=== PATIENT | male | born 1940 | race Caucasian/White ===

== ENCOUNTER 2017-09-01 09:47 | Observation (INO) | payer OTHER ==
[~2017-09-01] VITALS: Ht 170.2 cm; Wt 72.8 kg
[2017-09-01] VITALS (8 sets, daily range): BP systolic 131–206; BP diastolic 69–98; PULSE 63–98; RESP 18–20; TEMP 97.1–98.4; O2SAT 96–98
[~2017-09-01 09:47] MED LIST: ASPI81TA21 PO; CLOP75 PO; LEVO.075 PO; METO50TA PO; PANT20 PO; VITATAB25 PO
[2017-09-01] MEDS ORDERED: SODIUM CHLORIDE 0.9% FLUSH 10 ML FLUSH IVF PRN (10:00)
[2017-09-01] MEDS ORDERED: HEPARIN SODIUM - IV 10,000 UNITS/10 ML VIAL IV PUSH ONE (10:00)
[2017-09-01] MEDS ORDERED: LISI10TA3 PO (10:38)
[2017-09-01] MEDS ORDERED: PROT40TA PO (10:38)
[2017-09-01] MEDS ORDERED: D31000CA3 PO (10:38)
[2017-09-01] MEDS ORDERED: VITA250T3 PO (10:38)
[2017-09-01] MEDS ORDERED: LEVO50TA4 PO (10:38)
[2017-09-01] MEDS ORDERED: ASPI81TA16 PO (10:38)
[2017-09-01] MEDS ORDERED: METO1TAB42 PO (10:38)
[2017-09-01] MEDS ORDERED: PLAV75TA29 PO (10:38)
[2017-09-01 10:40] LABS: AUTOMATED NEUTROPHIL # 5.1 TH/MM3 (1.8-7.7); BASOPHIL # 0.1 TH/MM3 (0-0.2); BASOPHIL % 1.4 % (0.0-2.0); EOSINOPHIL # 0.3 TH/MM3 (0-0.4); EOSINOPHIL % 4.8 % (0.0-4.0); HEMATOCRIT 42.8 % (39.0-51.0); HEMO FLAGS DIFF FINAL; LYMPH % 16.9 % (9.0-44.0); LYMPHOCYTE # 1.2 TH/MM3 (1.0-4.8); MEAN CORPUSCULAR HEMOGLOBIN 28.5 PG (27.0-34.0); MEAN CORPUSCULAR HGB CONC 33.5 % (32.0-36.0); MONO % 7.2 % (0.0-8.0); NEUT % 69.7 % (16.0-70.0); PLATELET COUNT 198 TH/MM3 (150-450); RED BLOOD COUNT 5.04 MIL/MM3 (4.50-5.90); RED CELL DISTRIBUTION WIDTH 15.5 % (11.6-17.2); WHITE BLOOD COUNT 7.3 TH/MM3 (4.0-11.0)
[2017-09-01 10:51] LABS: APTT (PATIENT) 27.6 SEC (24.3-30.1); PROTHROMBIN TIME - PATIENT 10.5 SEC (9.8-11.6)
--- NOTE | 2017-09-01 10:54 | PD ---
HPI . Chest pain Chief Complaint: Chest Pain Time Seen by Provider: 10:45 Travel History International Travel<30 days: No Contact w/Intl Traveler<30days: No Traveled to known affect area: No History of Present Illness HPI This patient presents to us at the request of his jack spooler tender for admission for cardiac catheterization. This patient reports chest pain intermittently for the last couple weeks. He has chest pain with exertion. Pain is relieved by rest. Pain usually last about 10 minutes. He estimates about 10 episodes in the last 2 weeks. He denies any associated nausea or diaphoresis. He states that his chest pain is a 7/10 when he has pain but that he is not currently having any pain. He states that he had a stress test done by his jack spooler tender about 3 months ago and that it was abnormal. He states that his jack spooler tender wanted him to have a catheterization at that time but he was leaving to go to [place] for the summer. He reports that he has had chest pain with exertion intermittently since that time and that it has become acutely worse over the last couple weeks. The patient does report dyspnea on exertion but states that the dyspnea on exertion is unrelated to the chest pain. 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) Cardiac Catheterization: Yes (february 2010) Cardiovascular Problems: Yes High Cholesterol: Yes Chemotherapy: Yes Chest Pain: Yes Congestive Heart Failure: No COPD: No Cerebrovascular Accident: Yes (TIA ) Coronary Artery Disease: Yes Diabetes: No Diminished Hearing: No Endocrine: Yes Gastrointestinal Disorders: Yes GERD: No Glaucoma: No Genitourinary: Yes Headaches: No Hepatitis: No Hiatal Hernia: No Heparin Induced Thrombocytopen: No Hypertension: Yes Immune Disorder: No Implanted Vascular Access Dvce: No Kidney Stones: No Musculoskeletal: Yes Neurologic: Yes Psychiatric: No Reproductive: No Respiratory: No Immunizations Current: No Migraines: No Myocardial Infarction: Yes (SC) Radiation Therapy: Yes (& Chemo See Cancer note) Renal Failure: No Seizures: No Sickle Cell Disease: No Sleep Apnea: No Thyroid Disease: Yes (HYPO) Ulcer: No PNEUMOCCOCAL Vaccine (Year): 2 Past Surgical History Abdominal Surgery: Yes (hernia repair) AICD: No Appendectomy: Yes (1973) Arteriovenous Shunt: No Body Medical Devices: CAD STENT Cardiac Surgery: Yes (CARDIAC STENT PLACEMENT, CABG 2009) Cholecystectomy: Yes (11/14/10) Coronary Artery Bypass Graft: Yes (02/2010 - [facility] bypass) Coronary Stent: Yes Ear Surgery: No Endocrine Surgery: No Eye Surgery: No Genitourinary Surgery: Yes (PROSTATECTOMY 1999) Gynecologic Surgery: No Insulin Pump: No Joint Replacement: No Neurologic Surgery: No Oral Surgery: No Pacemaker: No Thoracic Surgery: No Other Surgery: Yes Social History Alcohol Use: No Tobacco Use: No (quit in 1969) Substance Use: No Allergies-Medications (Allergen,Severity, Reaction): Coded Allergies: codeine (Unverified Allergy, Severe, ANXIOUS, 09/01/17) Reported Meds & Prescriptions Reported Meds & Active Scripts Active Reported Levothyroxine (Levothyroxine Sodium) 50 Mcg Tab 50 Mcg PO DAILY Protonix (Pantoprazole Sodium) 40 Mg Tab 40 Mg PO DAILY Plavix (Clopidogrel Bisulfate) 75 Mg Tab 75 Mg PO DAILY Vitamin C (Ascorbic Acid) 250 Mg Tab 500 Mg PO DAILY Lisinopril 10 Mg Tab 30 Mg PO DAILY Aspirin Adult Low Strength (Aspirin) 81 Mg Tabdr 81 Mg PO DAILY Vitamin D-3 (Cholecalciferol) 1,000 Unit Cap 1,000 Units PO DAILY Metoprolol Succinate ER 24 HR (Metoprolol Succinate) 25 Mg Tab 25 Mg PO DAILY Review of Systems Except as stated in HPI: all other systems reviewed are Neg HENT: No: Lightheadedness Cardiovascular: Positive: Chest Pain or Discomfort Respiratory: Positive: Shortness of Breath Gastrointestinal: No: Nausea, Vomiting Physical Exam Narrative GENERAL: Pleasant older gentleman who is in no acute distress. SKIN: warm/dry. Good color. HEAD: Normocephalic. Atraumatic. EYES: Pupils equal and round. No scleral icterus. No injection or drainage. ENT: No nasal bleeding or discharge. Mucous membranes pink and moist. NECK: Trachea midline. Full range of motion without pain.. CARDIOVASCULAR: Regular rate and rhythm. Heart sounds are normal. Well-healed vertical surgical scar over the sternum. RESPIRATORY: No accessory muscle use. Clear to auscultation. Breath sounds equal bilaterally. GASTROINTESTINAL: Abdomen soft. Nontender. Bowel sounds present. Nondistended. MUSCULOSKELETAL: No obvious deformities. NEUROLOGICAL: Awake and alert. No obvious cranial nerve deficits. Motor grossly within normal limits. Normal speech. PSYCHIATRIC: Appropriate mood and affect; insight and judgment normal. Data Data Last Documented VS Vital Signs Date Time Temp Pulse Resp B/P (MAP) Pulse Ox O2 Delivery O2 Flow Rate FiO2 09/01/17 10:51 76 155/73 (100) 09/01/17 10:28 18 96 Room Air 09/01/17 09:50 97.4 Orders Orders Electrocardiogram (09/01/17 09:58) Basic Metabolic Panel (Bmp) (09/01/17 09:58) Ckmb (Isoenzyme) Profile (09/01/17 09:58) Complete Blood Count With Diff (09/01/17 09:58) Magnesium (Mg) (09/01/17 09:58) Prothrombin Time / Inr (Pt) (09/01/17 09:58) Act Partial Throm Time (Ptt) (09/01/17 09:58) Troponin I (09/01/17 09:58) Chest, Single Ap (09/01/17 09:58) Ecg Monitoring (09/01/17 09:58) Iv Access Insert/Monitor (09/01/17 09:58) Oximetry (09/01/17 09:58) Sodium Chloride 0.9% Flush (Ns Flush) (09/01/17 10:00) Heparin Inj (Heparin Inj) (09/01/17 10:00) Heparin Inj (Heparin Inj) (09/01/17 16:00) Heparin Inj (Heparin Inj) (09/01/17 16:00) Heparin-D5w 25,000 U/250 Ml (Heparin-D5w (09/01/17 11:00) CKMB (09/01/17 10:15) CKMB% (09/01/17 10:15) Aspirin Ec (Ecotrin Ec) (09/02/17 09:00) Clopidogrel (Plavix) (09/02/17 09:00) Levothyroxine (Synthroid) (09/02/17 09:00) Lisinopril (Prinivil) (09/02/17 09:00) Metoprolol Succinate Er (Toprol Xl) (09/02/17 09:00) Pantoprazole (Protonix) (09/02/17 09:00) (Nf) Ascorbic Acid (Vitamin C) (09/02/17 09:00) (Nf) Cholecalciferol (Vitamin D-3) (09/02/17 09:00) Admit Order (Ed Use Only) (09/01/17 ) Labs Laboratory Tests Test 09/01/17 10:15 White Blood Count 7.3 TH/MM3 Red Blood Count 5.04 MIL/MM3 Hemoglobin 14.3 GM/DL Hematocrit 42.8 % Mean Corpuscular Volume 85.0 FL Mean Corpuscular Hemoglobin 28.5 PG Mean Corpuscular Hemoglobin Concent 33.5 % Red Cell Distribution Width 15.5 % Platelet Count 198 TH/MM3 Mean Platelet Volume 8.9 FL Neutrophils (%) (Auto) 69.7 % Lymphocytes (%) (Auto) 16.9 % Monocytes (%) (Auto) 7.2 % Eosinophils (%) (Auto) 4.8 % Basophils (%) (Auto) 1.4 % Neutrophils # (Auto) 5.1 TH/MM3 Lymphocytes # (Auto) 1.2 TH/MM3 Monocytes # (Auto) 0.5 TH/MM3 Eosinophils # (Auto) 0.3 TH/MM3 Basophils # (Auto) 0.1 TH/MM3 CBC Comment DIFF FINAL Differential Comment Prothrombin Time 10.5 SEC Prothromb Time International Ratio 1.0 RATIO Activated Partial Thromboplast Time 27.6 SEC Blood Urea Nitrogen 10 MG/DL Creatinine 1.02 MG/DL Random Glucose 120 MG/DL Calcium Level 9.2 MG/DL Magnesium Level 2.2 MG/DL Sodium Level 139 MEQ/L Potassium Level 4.0 MEQ/L Chloride Level 103 MEQ/L Carbon Dioxide Level 28.3 MEQ/L Anion Gap 8 MEQ/L Estimat Glomerular Filtration Rate 71 ML/MIN Total Creatine Kinase 123 U/L Creatine Kinase MB 4.1 NG/ML Troponin I 0.35 NG/ML Exceptions Acute Myocardial Infarction ASA Not Given on Arrival: Already taken by patient MDM Medical Decision Making Medical Screen Exam Complete: Yes Emergency Medical Condition: Yes Medical Record Reviewed: Yes (he has multiple medical problems including HTN, HL, CAD s/p SC, CABG, CVA with no residual weakness, COPD, lung CA and nasopharyngeal CA) Interpretation(s) EKG shows a normal sinus rhythm with no acute ST segment elevation or depression. Differential Diagnosis Differential diagnosis of chest pain includes but is not limited to musculoskeletal pain, pulmonary embolism, acute coronary syndrome, pneumonia, pleurisy Narrative Course Patient presents with unstable angina. Heparin has been started. He has already taken an aspirin at home prior to arrival. Arrangements will be made for him to be admitted to the medicine service with consultation to cardiology CBC & BMP Diagram 09/01/17 10:15 Calcium Level 9.2, Magnesium Level 2.2 trop 0.35 CKMB 4.1 Physician Communication Physician Communication Case discussed with Dr. Luo. The patient will be admitted to medicine with a cardiology consultation. The plan is to cath him tomorrow. Dr. Jim will admit. Diagnosis Primary Impression: Unstable angina Admitting Information Admitting Physician Requests: Admit Condition: Stable Dinah Mott MD Sep 01, 2017 10:54
[2017-09-01 10:56] LABS: ANION GAP 8 MEQ/L (5-15); BICARBONATE 28.3 MEQ/L (21.0-32.0); BLOOD UREA NITROGEN 10 MG/DL (7-18); CHLORIDE 103 MEQ/L (98-107); GLOMERULAR FILTRATION RATE 71 ML/MIN (>89); MAGNESIUM 2.2 MG/DL (1.5-2.5); SODIUM (NA) 139 MEQ/L (136-145)
[2017-09-01 11:00] LABS: CREATINE KINASE 123 U/L (39-308)
[2017-09-01] MEDS ORDERED: HEPARIN-D5W 25,000 U/250 ML 250 ML IV PRN (11:00)
[2017-09-01 11:12] LABS: CKMB 4.1 NG/ML (0.5-3.6)
--- NOTE | 2017-09-01 11:46 | RADRPT ---
EXAM DATE/TIME: 09/01/2017 10:28 [facility] COMPARISON: CHEST SINGLE AP, October 06, 2010, 0:00. INDICATIONS : Chest pain upon exertion for several days, short of breath MEDICAL HISTORY : Cardiovascular disease. SURGICAL HISTORY : CABG. ENCOUNTER: Initial ACUITY: 4 - 6 days PAIN SCORE: 7/10 LOCATION: Bilateral chest FINDINGS: Portable AP view of the chest demonstrates a normal-sized cardiac silhouette in this patient post med dawit sternotomy. Lungs are underinflated. There is mild atelectasis at the lung bases. No effusion, co nsolidation, or pneumothorax is visualized. Bones and soft tissues demonstrate no acute finding. CONCLUSION: Underinflation with mild atelectasis at the lung bases. Otherwise, no acute finding is identified. Alber Saenz MD on September 01, 2017 at 11:43 Board Certified Radiologist. This report was verified electronically.
[2017-09-01] MEDS ORDERED: BISACODYL 10 MG SUPP RECTAL PRN (12:15)
[2017-09-01] MEDS ORDERED: SENNOSIDES 8.6 MG TAB PO PRN (12:15)
[2017-09-01] MEDS ORDERED: ACETAMINOPHEN 325 MG TAB PO PRN (12:15)
[2017-09-01] MEDS ORDERED: MAGNESIUM HYDROXIDE SUSP 30 ML CUP PO PRN (12:15)
[2017-09-01] MEDS ORDERED: NALOXONE HCL 0.4 MG/ML AMP IV PUSH PRN (12:15)
[2017-09-01] MEDS ORDERED: SODIUM CHLORIDE 0.9% FLUSH 10 ML FLUSH IV FLUSH PRN (12:15)
[2017-09-01] MEDS ORDERED: ONDANSETRON HCL 4 MG/2 ML VIAL IVP PRN (12:15)
[2017-09-01] MEDS ORDERED: LACTULOSE SYRUP 20 GM/30 ML CUP PO PRN (12:15)
[2017-09-01] MEDS ORDERED: IOHEXOL 350 MG/ML 100 ML BTL (for Cath Lab) OTHER ONE (12:17)
--- NOTE | 2017-09-01 12:21 | HHI.HP ---
[facility] Unknown Admission Diagnosis Diagnoses: Chief Complaint: Chest pain Travel History International Travel<30 Days: No Contact w/Intl Traveler <30 Da: No Traveled to Known Affected Are: No History of Present Illness This is a pleasant 77 y/o male presents to ER at the request of his real estate appraiser for admission for cardiac catheterization. This patient reports chest pain intermittently for the last couple weeks. He has chest pain with exertion. Pain is relieved by rest. Pain usually last about 10 minutes. He estimates about 10 episodes in the last 2 weeks. He denies any associated nausea or diaphoresis. He states that his chest pain is a 7/10 when he has pain but that he is not currently having any pain. He states that he had a stress test done by his real estate appraiser about 3 months ago and that it was abnormal. He states that his real estate appraiser wanted him to have a catheterization at that time but he was leaving to go to [place] for the summer. He reports that he has had chest pain with exertion intermittently since that time and that it has become acutely worse over the last couple weeks.The patient states he lives in [place] where he has another property and came to [facility] last Thursday, he went to see his Primary mission assessment specialist who asked him to go today for an ECG, he is been feeling chest pain for the last three weeks as an Oppressive sensation radiated to the back, yesterday particularly worse 8/10 in intensity. was sent to ER for Admission thinking in Cardiac Cath tomorrow. his first set of Troponin are elevated 0.35 was started on Heparin. Review of Systems Constitutional: DENIES: Fever, Chills, Change in appetite Endocrine: DENIES: Heat/cold intolerance Eyes: DENIES: Blurred vision, Eye pain Except as stated in HPI: all other systems reviewed are Neg Past Family Social History Past Medical History OA Squamous Cell Ca CAD status post PCI 2009 and stent placement Hyperlipidemia Status post Chemotherapy TIA Hypertension Hypothyroidism GERD Past Surgical History Hernia repair Appendectomy 1974 Cholecystectomy CABG x 4 2010 Prostatectomy 1999 Reported Medications Reported Meds & Active Scripts Active Reported Levothyroxine (Levothyroxine Sodium) 50 Mcg Tab 50 Mcg PO DAILY Protonix (Pantoprazole Sodium) 40 Mg Tab 40 Mg PO DAILY Plavix (Clopidogrel Bisulfate) 75 Mg Tab 75 Mg PO DAILY Vitamin C (Ascorbic Acid) 250 Mg Tab 500 Mg PO DAILY Lisinopril 10 Mg Tab 30 Mg PO DAILY Aspirin Adult Low Strength (Aspirin) 81 Mg Tabdr 81 Mg PO DAILY Vitamin D-3 (Cholecalciferol) 1,000 Unit Cap 1,000 Units PO DAILY Metoprolol Succinate ER 24 HR (Metoprolol Succinate) 25 Mg Tab 25 Mg PO DAILY Allergies: Coded Allergies: codeine (Unverified Allergy, Severe, ANXIOUS, 09/01/17) Active Ordered Medications Current Medications Medications (Trade) Dose Ordered Sig/Pilo Route Start Time Stop Time Status Last Admin (NS Flush) 2 ml UNSCH PRN IVF 09/01/17 10:00 (Heparin Inj) 5,000 units UNSCH PRN IV PUSH 09/01/17 16:00 (Heparin Inj) 2,500 units UNSCH PRN IV PUSH 09/01/17 16:00 Heparin Sodium/ Dextrose 250 ml @ 8.64 mls/hr TITRATE PRN IV 09/01/17 11:00 09/01/17 11:05 (Ecotrin Ec) 81 mg DAILY PO 09/02/17 09:00 (Plavix) 75 mg DAILY PO 09/02/17 09:00 (Synthroid) 50 mcg DAILY@0600 PO 09/02/17 06:00 (Prinivil) 30 mg DAILY PO 09/02/17 09:00 UNV (Toprol Xl) 25 mg DAILY PO 09/02/17 09:00 (Protonix) 40 mg DAILY PO 09/02/17 09:00 Non-Formulary Medication 500 mg DAILY PO 09/02/17 09:00 UNV Non-Formulary Medication 1,000 units DAILY PO 09/02/17 09:00 UNV Sodium Chloride 1,000 ml @ 83 mls/hr Q12H3M IV 09/01/17 12:14 (NS Flush) 2 ml UNSCH PRN IV FLUSH 09/01/17 12:15 (NS Flush) 2 ml BID IV FLUSH 09/01/17 21:00 (Tylenol) 650 mg Q4H PRN PO 09/01/17 12:15 UNV (Zofran Inj) 4 mg Q6H PRN IVP 09/01/17 12:15 (Narcan Inj) 0.4 mg UNSCH PRN IV PUSH 09/01/17 12:15 (Jamila-Colace) 1 tab BID PO 09/01/17 21:00 (Milk Of Magnesia Liq) 30 ml Q12H PRN PO 09/01/17 12:15 (Senokot) 17.2 mg Q12H PRN PO 09/01/17 12:15 (Dulcolax Supp) 10 mg DAILY PRN RECTAL 09/01/17 12:15 UNV (Lactulose Liq) 30 ml DAILY PRN PO 09/01/17 12:15 Family History all his family with CAD pathology Social History Lives with his and Denies any toxic habits. Physical Exam Vital Signs Vital Signs Date Time Temp Pulse Resp B/P (MAP) Pulse Ox O2 Delivery O2 Flow Rate FiO2 09/01/17 10:51 76 155/73 (100) 09/01/17 10:28 98 18 181/88 (119) 96 Room Air 09/01/17 10:13 72 18 98 Room Air 09/01/17 10:12 18 96 Room Air 09/01/17 09:50 97.4 68 18 206/98 (134) 97 Room Air Physical Exam GENERAL: Pleasant older gentleman who is in no acute distress. SKIN: warm/dry HEAD: Normocephalic. Atraumatic. EYES: Pupils equal and round. No scleral icterus. No injection or drainage. ENT: No nasal bleeding or discharge. Mucous membranes pink and moist. NECK: Trachea midline. Full range of motion without pain.. CARDIOVASCULAR: Regular rate and rhythm. Heart sounds are normal. RESPIRATORY: No accessory muscle use. Clear to auscultation. Breath sounds equal bilaterally. GASTROINTESTINAL: Abdomen soft. Nontender. Bowel sounds present. Nondistended. MUSCULOSKELETAL: No obvious deformities. NEUROLOGICAL: Awake and alert. No obvious cranial nerve deficits. PSYCHIATRIC: Appropriate mood and affect; insight and judgment normal. Laboratory Laboratory Tests Test 09/01/17 10:15 White Blood Count 7.3 Red Blood Count 5.04 Hemoglobin 14.3 Hematocrit 42.8 Mean Corpuscular Volume 85.0 Mean Corpuscular Hemoglobin 28.5 Mean Corpuscular Hemoglobin Concent 33.5 Red Cell Distribution Width 15.5 Platelet Count 198 Mean Platelet Volume 8.9 Neutrophils (%) (Auto) 69.7 Lymphocytes (%) (Auto) 16.9 Monocytes (%) (Auto) 7.2 Eosinophils (%) (Auto) 4.8 Basophils (%) (Auto) 1.4 Neutrophils # (Auto) 5.1 Lymphocytes # (Auto) 1.2 Monocytes # (Auto) 0.5 Eosinophils # (Auto) 0.3 Basophils # (Auto) 0.1 CBC Comment DIFF FINAL Differential Comment Prothrombin Time 10.5 Prothromb Time International Ratio 1.0 Activated Partial Thromboplast Time 27.6 Blood Urea Nitrogen 10 Creatinine 1.02 Random Glucose 120 Calcium Level 9.2 Magnesium Level 2.2 Sodium Level 139 Potassium Level 4.0 Chloride Level 103 Carbon Dioxide Level 28.3 Anion Gap 8 Estimat Glomerular Filtration Rate 71 Total Creatine Kinase 123 Creatine Kinase MB 4.1 Troponin I 0.35 Result Diagram: 09/01/17 1015 09/01/17 1015 Imaging No imaging studies. Caprini VTE Risk Assessment Caprini VTE Risk Assessment: Mod/High Risk (score >= 2) Caprini Risk Assessment Model Point Value = 1 Point Value = 2 Point Value = 3 Point Value = 5 Age 41-60 Minor surgery BMI > 25 kg/m2 Swollen legs Varicose veins or History of unexplained or recurrent spontaneous Oral contraceptives or hormone replacement Sepsis (< 1 month) Serious lung disease, including pneumonia (< 1 month) Abnormal pulmonary function Acute myocardial infarction Congestive heart failure (< 1 month) History of inflammatory bowel disease Medical patient at bed rest Age 61-74 Arthroscopic surgery Major open surgery (> 45 min) Laparoscopic surgery (> 45 min) Malignancy Confined to bed (> 72 hours) Immobilizing plaster cast Central venous access Age >= 75 History of VTE Family history of VTE Factor V Leiden Prothrombin [id number] Lupus anticoagulant Anticardiolipin antibodies Elevated serum homocysteine Heparin-induced thrombocytopenia Other congenital or acquired thrombophilia Stroke (< 1 month) Elective arthroplasty Hip, pelvis, or leg fracture Acute spinal cord injury (< 1 month) Prophylaxis Regimen Total Risk Factor Score Risk Level Prophylaxis Regimen 0-1 Low Early ambulation 2 Moderate Order ONE of the following: *Sequential Compression Device (SCD) *Heparin 5000 units SQ BID 3-4 Higher Order ONE of the following medications: *Heparin 5000 units SQ TID *Enoxaparin/Lovenox 40 mg SQ daily (WT < 150 kg, CrCl > 30 mL/min) *Enoxaparin/Lovenox 30 mg SQ daily (WT < 150 kg, CrCl > 10-29 mL/min) *Enoxaparin/Lovenox 30 mg SQ BID (WT < 150 kg, CrCl > 30 mL/min) AND/OR *Sequential Compression Device (SCD) 5 or more Highest Order ONE of the following medications: *Heparin 5000 units SQ TID (Preferred with Epidurals) *Enoxaparin/Lovenox 40 mg SQ daily (WT < 150 kg, CrCl > 30 mL/min) *Enoxaparin/Lovenox 30 mg SQ daily (WT < 150 kg, CrCl > 10-29 mL/min) *Enoxaparin/Lovenox 30 mg SQ BID (WT < 150 kg, CrCl > 30 mL/min) AND *Sequential Compression Device (SCD) Assessment and Plan Assessment and Plan 1. Unstable Angina patient of mission assessment specialist doctor Puja who was sent for Cardiac Cath to be performed. tomorrow ECG sinus rhythm, ischemic changes. on Heparin, continue Aspirin and Plavix, will be NPO at midnight today. Hemoglobin 14.3, Creatinine 1.02 Mag level 2.2 Troponin level 0.35, CKMB 4.1. 2. OA 3. Squamous Cell Ca history 4. CAD status post PCI 2009 and stent placement/CABG x 5 5. Hyperlipidemia continue Home medicines asked for Lipid profile and Hemoglobin A1C 6. Hypertension continue Home medicines 7. Hypothyroidism continue Hormonal replacement. DVT Prophylaxis with Heparin. Gastric protection with Famotidine will go to IV due to that will be NPO at midnight. Code Status Full Code Discussed Condition With Patient and ER physician Doctor Daerll Cannon MD Sep 01, 2017 12:21
[2017-09-01] MEDS: SODIUM CHLOR 0.9% 1000 ML INJ 1,000 ML IV SCH (13:55)
[2017-09-01] MEDS ORDERED: HEPARIN SODIUM - IV 10,000 UNITS/10 ML VIAL IV PUSH PRN ×2 (16:00)
[2017-09-01 20:38] LABS: HDL CHOLESTEROL 41.4 MG/DL (40.0-60.0)
[2017-09-01] MEDS: DOCUSATE SODIUM 50 MG/SENNA 8.6 MG TAB PO SCH (20:41)
[2017-09-01] MEDS: SODIUM CHLORIDE 0.9% FLUSH 10 ML FLUSH IV FLUSH SCH (20:41)
[2017-09-01 20:45] LABS: APTT (PATIENT) 40.2 SEC (24.3-30.1)
--- NOTE | 2017-09-01 23:39 | MB ---
cc: FRANSISCO MATSON DO DATE OF CONSULTATION: 09/01/2017 REASON FOR CONSULTATION: Unstable angina, N-STEMI. HISTORY OF PRESENT ILLNESS Simone Carrizales is a pleasant 77 year-old male who sees my partner Dr. Luo in the office, who presented to [facility] after being sent over from the office due to unstable angina. Apparently the patient had a stress test back in April and at that time was found to have lateral ischemia. At that time he was relatively asymptomatic and going to [place] soon and so they attempted to treat this medically. After returning from [place], Mr. Carrizales noticed that he was having more and more bouts of the angina with little to no exertion. Pain seemed to be relieved by rest. When he gets the pain it lasts about ten minutes. He previously was supposed to see Dr. Luo in September but moved up his office visit due to the chest pain he was having. When Dr. Luo saw him today he felt that obviously he was having extensive bouts of unstable angina and so he sent him over to the emergency room. Since that time he has been placed on heparin drip and while currently seeing him, he is without chest pain or shortness of breath. PAST MEDICAL HISTORY 1. Coronary artery disease. 2. Hypertension 3. Hypothyroidism. 4. Osteoarthritis 5. Squamous cell cancer 6. Hyperlipidemia 7. TIA 8. GERD. PAST SURGICAL HISTORY 1. Coronary artery bypass grafting x4 (February). WORKMAN to LAD, SVG to diagonal, SVG to OM, SVG to RCA. 2. Cardiac catheterization (August 29, 2010). Patent grafts with an occluded first obtuse marginal distal to the vein graft anastomosis and diffuse disease of the [place] coronary arteries. 3. Appendectomy. 4. Left inguinal hernia repair 5. Right knee replacement. 6. Skin cancer removal from right ear. 7. Prostatectomy. 8. Cholecystectomy. ALLERGIES CODEINE. MEDICATIONS 1. Aspirin 81 mg daily 2. Plavix 75 mg daily 3. Toprol XL 25 mg daily 4. Lisinopril 30 mg daily 5. Protonix 40 mg daily 6. Synthroid 50 mcg daily. FAMILY HISTORY Denies sudden cardiac within the family. SOCIAL HISTORY The patient lives with his . He previously smoked and drank but quit a number of years ago. REVIEW OF SYSTEMS 14-systems were reviewed including osteopathic pertinent positives and negatives above otherwise negative. PHYSICAL EXAMINATION Vital signs: Temperature 97.1, heart rate 63, blood pressure 165/84, respirations 20, pulse ox 96% on room air. In general the patient appears well in no acute distress, alert awake and oriented x3. Extraocular muscles intact. Mucous membranes moist. Neck: Supple. No JVD at 45 degrees. No carotid bruits heard bilaterally. Carotid upstroke is brisk in nature. Heart: Regular rate and rhythm. Positive first and second heart sounds with no murmurs, gallops or rubs. Lungs: Clear to auscultation bilaterally. No wheezes, rales or rhonchi. Abdomen: Soft, nontender, nondistended. No organomegaly noted. Extremities: Show no clubbing, cyanosis or edema. Femoral and distal pulses intact bilaterally. Neurologically: No focal deficits. Skin: Warm, dry and intact. Osteopathic: No kyphoscoliosis, lordosis or paraspinal tender points. LABORATORY WORK: Hemoglobin 14.3, hematocrit 42.8, platelets 198. Potassium 4.0, BUN 10, creatinine 1.02, troponin 0.39, total cholesterol 217, LDL 148, triglycerides 139, HDL 41.4. Electrocardiogram (September 01, 2017 and 08/07) sinus rhythm, possible left atrial enlargement, ST-T wave changes possibly due to lateral ischemia, possible old inferior infarct. IMPRESSION 1. Unstable angina. 1. Elevated troponin / N-STEMI. 2. Coronary artery disease as above. 3. History of hypertension 4. History of hyperlipidemia. RECOMMENDATIONS 1. Mr. Carrizales presented to the office with concern for unstable angina and has been sent to the emergency room. Since that time he is currently hemodynamically and electrically stable. We will plan on placing him on a heparin drip with a plan for cardiac catheterization tomorrow. 2. Risks, benefits and alternatives were explained to him and his family and he consents as such. 3. We will check a 2-D echo to look at his overall left ventricular function, cardiac structure and possible valvulopathies. 4. Further recommendations will be made based on the hospital course. Thank you for allowing me to see Simone Carrizales. If there are any questions please do not hesitate to call. Fransisco Matson DO VGP/NATALEE /9:36 PM /11:09 PM
[2017-09-02] MEDS: SODIUM CHLOR 0.9% 1000 ML INJ 1,000 ML IV SCH ×2 (00:17→20:56)
[2017-09-02 03:56] LABS: AUTOMATED NEUTROPHIL # 4.3 TH/MM3 (1.8-7.7); BASOPHIL % 0.4 % (0.0-2.0); EOSINOPHIL # 0.4 TH/MM3 (0-0.4); EOSINOPHIL % 5.8 % (0.0-4.0); HEMO FLAGS DIFF FINAL; LYMPH % 24.1 % (9.0-44.0); LYMPHOCYTE # 1.7 TH/MM3 (1.0-4.8); MEAN CELL VOLUME 83.4 FL (80.0-100.0); MEAN CORPUSCULAR HEMOGLOBIN 29.2 PG (27.0-34.0); MONO % 10.5 % (0.0-8.0); NEUT % 59.2 % (16.0-70.0); PLATELET COUNT 176 TH/MM3 (150-450); RED BLOOD COUNT 4.43 MIL/MM3 (4.50-5.90); RED CELL DISTRIBUTION WIDTH 15.1 % (11.6-17.2); WHITE BLOOD COUNT 7.2 TH/MM3 (4.0-11.0)
[2017-09-02 04:00] VITALS: BP 132/70; PULSE 84; RESP 19; TEMP 98; O2SAT 95
[2017-09-02 04:16] LABS: APTT (PATIENT) 45.8 SEC (24.3-30.1)
[2017-09-02 04:20] LABS: POTASSIUM 4.1 MEQ/L (3.5-5.1)
[2017-09-02] MEDS: LEVOTHYROXINE SODIUM 50 MCG TAB PO SCH (05:44)
[2017-09-02 08:00] VITALS: PULSE 66
[2017-09-02 08:02] VITALS: BP 153/79; PULSE 65; RESP 19; TEMP 97.3; O2SAT 97
[2017-09-02] MEDS: DOCUSATE SODIUM 50 MG/SENNA 8.6 MG TAB PO SCH ×2 (08:44→20:56)
[2017-09-02] MEDS: CLOPIDOGREL 75 MG TAB PO SCH (08:44)
[2017-09-02] MEDS: PANTOPRAZOLE SOD 40 MG DELAYED RELEASE TAB PO SCH (08:44)
[2017-09-02] MEDS: METOPROLOL SUCCINATE 25 MG EXTENDED RELEASE TAB PO SCH (08:44)
[2017-09-02] MEDS: LISINOPRIL 10 MG TAB PO SCH (08:44)
[2017-09-02] MEDS: ASPIRIN EC 81 MG TABEC PO SCH (08:45)
[2017-09-02] MEDS: CHOLECALCIFEROL (VIT D3) 1000 UNIT TAB PO SCH (08:45)
[2017-09-02] MEDS: SODIUM CHLORIDE 0.9% FLUSH 10 ML FLUSH IV FLUSH SCH ×2 (08:45→20:57)
[2017-09-02] MEDS: ASCORBIC ACID 500 MG TAB PO SCH (08:45)
--- NOTE | 2017-09-02 09:57 | HHI.PR ---
Subjective Remarks in no distress. no chest pain or sob. no new complaints. awaiting cardiac cath. Objective Vitals Vital Signs Date Time Temp Pulse Resp B/P (MAP) Pulse Ox O2 Delivery O2 Flow Rate FiO2 09/02/17 08:02 97.3 65 19 153/79 (103) 97 09/02/17 04:00 98.0 84 19 132/70 (90) 95 09/01/17 20:55 79 09/01/17 20:00 98.4 75 18 131/78 (95) 98 09/01/17 16:24 97.1 63 20 165/84 (111) 96 09/01/17 14:06 69 18 140/69 (92) 97 Room Air 09/01/17 10:51 76 155/73 (100) 09/01/17 10:28 98 18 181/88 (119) 96 Room Air 09/01/17 10:13 72 18 98 Room Air 09/01/17 10:12 18 96 Room Air I/O 09/01/17 09/01/17 09/01/17 09/02/17 09/02/17 09/02/17 07:00 15:00 23:00 07:00 15:00 23:00 Intake Total 0 ml Output Total 350 ml Balance -350 ml Intake Oral 0 ml Output Urine Total 350 ml # Bowel Movements 0 Result Diagram: 09/02/17 03409/02/17 0340 Imaging Last Impressions Chest X-Ray 09/01/17 0958 Signed Impressions: Service Date/Time: Friday, September 01, 2017 10:28 - CONCLUSION: Underinflation with mild atelectasis at the lung bases. Otherwise, no acute finding is identified. Alber Saenz MD Objective Remarks GENERAL: This is a well-nourished, well-developed patient, in no apparent distress. CARDIOVASCULAR: Regular rate and regular rhythm without murmurs, gallops, or rubs. RESPIRATORY: Clear to auscultation. Breath sounds equal bilaterally. No wheezes , rales, or rhonchi. GASTROINTESTINAL: Abdomen soft, non-tender, nondistended. Normal, active bowel sounds MUSCULOSKELETAL: Extremities without clubbing, cyanosis, or edema. NEURO: Alert & Oriented x4 to person, place, time, situation. Moves all ext x4 Medications and IVs Current Medications Sodium Chloride (NS Flush) 2 ml UNSCH PRN IVF FLUSH AFTER USING IV ACCESS; Start 09/01/17 at 10:00; Stop 09/01/17 at 14:02; Status DC Heparin Sodium (Porcine) (Heparin Inj) 4,000 units ONCE ONCE IV PUSH Last administered on 09/01/17 11:03; Start 09/01/17 at 10:00; Stop 09/01/17 at 10:02 ; Status DC Heparin Sodium (Porcine) (Heparin Inj) 5,000 units UNSCH PRN IV PUSH APTT LESS THAN 25; Start 09/01/17 at 16:00 Heparin Sodium (Porcine) (Heparin Inj) 2,500 units UNSCH PRN IV PUSH APTT 25 TO 39; Start 09/01/17 at 16:00 Heparin Sodium/ Dextrose 250 ml @ 8.64 mls/hr TITRATE PRN IV Coagulation Management Last administered on 09/01/17 11:05; Start 09/01/17 at 11:00 Aspirin (Ecotrin Ec) 81 mg DAILY PO Last administered on 09/02/17 08:45; Start 09/02/17 at 09:00 Clopidogrel Bisulfate (Plavix) 75 mg DAILY PO Last administered on 09/02/17 08 :44; Start 09/02/17 at 09:00 Levothyroxine Sodium (Synthroid) 50 mcg DAILY@0600 PO Last administered on 09/02 05:44; Start 09/02/17 at 06:00 Lisinopril (Prinivil) 30 mg DAILY PO Last administered on 09/02/17 08:44; Start 09/02/17 at 09:00 Metoprolol Succinate (Toprol Xl) 25 mg DAILY PO Last administered on 09/02/17 08:44; Start 09/02/17 at 09:00 Pantoprazole Sodium (Protonix) 40 mg DAILY PO Last administered on 09/02/17 08 :44; Start 09/02/17 at 09:00 Ascorbic Acid (Vitamin C) 500 mg DAILY PO Last administered on 09/02/17 08:45 ; Start 09/02/17 at 09:00 Cholecalciferol (Vitamin D3) 1,000 units DAILY PO Last administered on 08:45; Start 09/02/17 at 09:00 Sodium Chloride 1,000 ml @ 83 mls/hr Q12H3M IV Last administered on 09/02/17 00:17; Start 09/01/17 at 12:14 Sodium Chloride (NS Flush) 2 ml UNSCH PRN IV FLUSH FLUSH AFTER USING IV ACCESS ; Start 09/01/17 at 12:15 Sodium Chloride (NS Flush) 2 ml BID IV FLUSH Last administered on 09/02/17 08: 45; Start 09/01/17 at 21:00 Acetaminophen (Tylenol) 650 mg Q4H PRN PO TEMP > 100.4; Start 09/01/17 at 12:15 Ondansetron HCl (Zofran Inj) 4 mg Q6H PRN IVP NAUSEA OR VOMITING; Start at 12:15 Naloxone HCl (Narcan Inj) 0.4 mg UNSCH PRN IV PUSH SEE LABEL COMMENTS; Start 09/01/17 at 12:15 Senna/Docusate Sodium (Jamila-Colace) 1 tab BID PO Last administered on 20:41; Start 09/01/17 at 21:00 Magnesium Hydroxide (Milk Of Magnesia Liq) 30 ml Q12H PRN PO Mild constipation ; Start 09/01/17 at 12:15 Sennosides (Senokot) 17.2 mg Q12H PRN PO Moderate constipation; Start 09/01/17 at 12:15 Bisacodyl (Dulcolax Supp) 10 mg DAILY PRN RECTAL SEVERE CONSITIPATION; Start 09/01/17 at 12:15 Lactulose (Lactulose Liq) 30 ml DAILY PRN PO SEVERE CONSITIPATION; Start at 12:15 A/P Assessment and Plan A/P 1. Unstable Angina patient of branch operations specialist doctor Puja who was sent for Cardiac Cath to be performed. today. on Heparin drip- continue aspirin, plavix, lisinopril and metoprolol. 2. OA 3. Squamous Cell Ca history 4. CAD status post PCI 2009 and stent placement/CABG x 5 5. Hyperlipidemia - will add statin- 6. Hypertension continue Home medicines 7. Hypothyroidism continue Hormonal replacement. DVT Prophylaxis with Heparin. Discharge Planning awaiting cardiac cath and cardiology recommendations. Tejas Caceres MD Sep 02, 2017 09:57
--- NOTE | 2017-09-02 10:05 | EKG ---
Date Performed: 09/01/2017 Time Performed: 10:13:58 PTAGE: 77 years EKG: Sinus rhythm POSSIBLE LEFT ATRIAL ENLARGEMENT ST DEVIATION AND MODERATE T-WAVE ABNORMALITY, CONSIDER LATERAL ISCH EMIA ABNORMAL ECG PREVIOUS TRACING : 11/15/2010 19.41 DOCTOR: Lawrence Mccurdy Interpretating Date/Time 09/02/2017 10:05:18
[2017-09-02 12:02] VITALS: BP 154/78; PULSE 63; RESP 19; TEMP 97.3; O2SAT 97
[2017-09-02] MEDS ORDERED: HEPARIN-NS/PF INJ 1,000 ML ONE (12:35)
[2017-09-02] MEDS ORDERED: MIDAZOLAM HCL 2 MG/2 ML VIAL ONE (12:36)
--- NOTE | 2017-09-02 14:08 | CATHPROC ---
[id number] HIS Report Study Information Study Number Admission Scheduled Start Study Start [id number] Sep 01 2017 12:16PM 09/01/2017 Sep 02 2017 12:49PM [place] Service Cardiac Catheterization Admit Source Facility Department Other [facility] Physician and Clinical Staff Initial Fransisco Ramachandran Field Software Engineer Abby Kathleen,RN Recorder Abby Ellis,RT(R) Scrub Mariya BoyerRT(R) Procedures Performed Procedure Location (Site) Vessel Name Coronary Angiograms RCA Right Coronary Coronary Angiograms WORKMAN-LAD Left Coronary Coronary Angiograms SVG-DIAG Left Coronary Coronary Angiograms SVG-OM CIRC Coronary Angiograms SVG-RCA Right Coronary L Heart Cath Wire insertion Fem Art (right) Femoral Art Equipment Time Bioinformatics Associate Description Size Mfg Part Number Used/Scraped TRANSDUCER, TRGAGA Sports & EntertainmentADAM [id number] 12:52 DWYER CARROLL * Used W/ADONAYCOCK *[id number] INTRODUCER SET, [id number] 13:06 [employer] FR 5 Used MICROPUNCTURE *[id number] *[id number] [id number] *[id number] [id number] *[id number] [id number] *[id number] 12:52 [employer] INDUSTRIES PACK, CCL CUSTOM * Used *[id number] 12:52 [employer] MEDICAL SHEATH, FR5.5 PRELUDE 11CM FR 5 [id number] Used [id number] 12:52 DNP [employer] WIRE, 3MMJ .035 180CM 180CM Used *[id number] 12:52 NAMIC MANIFOLD, 4 PORT * Used *[id number] 12:52 [employer]COMED OMNIPAQUE, 350 MG, 150ML 150ML [id number] Used 13:10 [employer]ED OMNIPAQUE, 350 MG, 150ML 150ML [id number] Used [id number] 12:52 [employer]cer BLANKET,WARM AIR CCL * Used *[id number] History: Current Medications Medication Dosage/Unit Route Frequency Last Date/Time Taken ASA PLAVIX LISINOPRIL Toprol HEPARIN Synthroid History: Allergies Allergy Reaction codeine ANXIOUS History: Risk Factors Family History of Hypertension Dyslipidemia Previous TN Previous Heart Failure Premature CAD Yes Yes Yes Yes No Prior Valve Prior PCI Prior CABG Prior CABGDate Surgery No No Yes 03/08/2010 Cerebrovascular Peripheral Artery Chronic Lung On Dialysis Diabetes Disease Disease Disease No Yes No No No History: Symptoms/Diagnosis Selection Items Chest pain History: CV Disease Selection Items Known CAD History: Stress Tests Stress or Imaging Studies Performed No History: Other Current Smoker Method Quit Packs a Day Years Used Pack Years No Cigarettes 17 Years Ago 1 10 10 Labs Hgb (g/dl) Hct (%) RBC (MIL/MM3) WBC (l/cumm) Platelets (thousands) 11.60-17.00 35.00-51.00 4.00-5.90 4.00-11.00 150.00-450.00 13.0 37 4.4 7.2 176 Glucose (mg/dl) BUN (mg/dl) Creatinine (mg/dl) BUN:Creatinine (1:x) 74.00-106.00 7.00-18.00 0.50-1.30 10.00-20.00 90 13 0.8 16.3 Na (meq/l) K (meq/l) Cl (meq/l) CO2 (mmol/L) Ca (mg/dl) 136.00-145.00 3.50-5.10 98.00-107.00 21.00-32.00 8.50-10.10 140 4.1 105 28 8.6 PT (sec) PTT (sec) INR (PTT:PT) 9.80-11.60 24.30-30.10 0.90-1.10 10.5 45.8 1 Troponin I (ng/ml) CPK (u/l) CPK-MB (ng/ML) 0.02-0.05 26.00-308.00 0.50-3.60 0.32 88 4.1 Medication Medication Total Dose (Bolus/Oral) Medication Total Dosage/Unit 1% XYLOCAINE 20 mL FENTANYL 25 mcg VERSED 0.5 mg Medications (Bolus/Oral) Medication Time Given Dosage/Unit Administered By Reason FENTANYL 09/02/2017 1:02:00 PM 25 mcg Abby Kathleen 25 mcg FENTANYL given in lab by Abby Kathleen, LIU via Peripheral IV. VERSED 09/02/2017 1:03:00 PM 0.5 mg Abby Kathleen 0.5 mg VERSED given in lab by Abby Kathleen, RN via Peripheral IV. 1% XYLOCAINE 09/02/2017 1:04:22 PM 20 mL Fransisco Palacios 20 mL 1% XYLOCAINE given in lab by Fransisco Palacios in Right Groin via Subcutaneous. Medication (Drip) Medication Time Given Dosage/Unit Concentration/Unit Diluent (ml) Solution IV Solutions 09/02/2017 12:55:06 PM 0 mL (IV) 500 NaCl .9 Patient arrived on IV Solutions in Left Forearm via Peripheral IV. Pump/Drip Flow = 20 ml/hr using Na Cl .9. Ordered by Fransisco Palacios. Initial Case Assessment Cardiovascular HR Rhythm NIBP Chest Pain 64 REG 171/99 0 Edema Present Skin color Skin None Normal Warm Circulatory - Right Pulses Dorsalis Pedis Femoral 2 2 Scale (0,1,2,3,4,d) Circulatory - Left Pulses Dorsalis Pedis Femoral 2 2 Scale (0,1,2,3,4,d) Circulatory - Lower Extremities Color Lower Right Color Lower Left Normal Normal Neurological State Oriented to time-place- Alert Moves all extremities person Respiration - General Respiration Rate SpO2 (%) (B/min) 15 98 Final Case Assessment Cardiovascular HR Rhythm NIBP Chest Pain 67 REG 167/98 0 Edema Present Skin color Skin None Normal Warm Circulatory - Right Pulses Dorsalis Pedis Femoral Radial 2 2 2 Scale (0,1,2,3,4,d) Scale (0,1,2,3,4,d) Circulatory - Lower Extremities Color Lower Right Normal Neurological State Oriented to time-place- Alert Moves all extremities person Respiration - General Respiration Rate SpO2 (%) (B/min) 16 98 Chronological Log Time Study Chronological Log 12:40:30 Patient arrived via Bed. 12:40:35 Consent signed by the physician and the patient and verified by the [facility] staff. 12:49:34 Pressure channel 1 zeroed. 12:52:08 Patient Name, D.O.B, / Armband Verified By R.N. 12:52:34 Pre-op and post- op instructions given; patient acknowledges understanding of instructions. 12:52:35 Verbal Stimulation=2 Physical Stimulation=2 Airway=2 Respiration=2 TOTAL=8. (0=absent, 1=li mited, 2=present) 12:52:38 Patient has been NPO for More than 6Hrs. 12:52:38 Skin Breakdown-NONE 12:52:42 IV Warmer Connected To Patient. 12:52:44 A # 20 IV was noted in the Forearm (left). Grade = 0 Vitals capture started with the following parameters, Patient=Adult, Interval=5 min, Initial Pr kykobv=520 mmHg, 12:52:46 Deflation Rate=5 mmHg, Cuff placed on Left Arm 12:52:47 Reference ECG taken 12:53:51 HR=65 bpm, UPTQ=587/99 mmhg, SpO2=98.0 %, Resp=17 B/min, Pain=0, Alla=10, Quintero=2 12:54:09 HEPARIN DISCONTINUED IN PATIENTS ROOM Patient arrived on IV Solutions in Left Forearm via Peripheral IV. Pump/Drip Flow = 20 ml/hr us ing NaCl .9. Ordered by 12:55:06 Fransisco Palacios 12:55:24 History and physical on the chart or being dictated. Assessment: Initial Case, HR=64 BPM, Rhythm=REG, ZAME=000/99 mmhg, Chest Pain=0, Edema=None, Color=Normal, Skin = Warm Right Pulses: Albaro Ped=2, Femoral=2 Left Pulses: Albaro Ped=2, Femoral=2 12:55:25 Lower Right Extremities: Color=Normal Lower Left Extremities: Color=Normal Neurological: State=Alert, Ox3, PLUNKETT Respiration: Resp=15 B/min, SpO2=98 % 12:55:54 Right groin prepped with 2% chlorhexidine, and draped after a 3 min. waiting time. 12:56:00 MD paged 12:58:22 HR=64 bpm, BQPE=274/108 mmhg, SpO2=97.0 %, Resp=16 B/min, Pain=0, Alla=10, Quintero=2 13:01:54 MD arrived. 13:02:00 25 mcg FENTANYL given in lab by Abby Kathleen, RN via Peripheral IV. Time Out. Correct patient, correct procedure, correct physician, power injector not loaded with contrast with surgical 13:02:34 team present. Time Out Concurred by MD and individual staff in procedure. 13:03:00 0.5 mg VERSED given in lab by Abby Kathleen, RN via Peripheral IV. 13:03:24 Case Start 13:04:02 HR=69 bpm, FQKS=672/98 mmhg, SpO2=97.0 %, Resp=12 B/min, Pain=0, Alla=10, Quintero=2 13:04:13 Verbal Stimulation=2 Physical Stimulation=2 Airway=2 Respiration=2 TOTAL=8. (0=absent, 1=li mited, 2=present) 13:04:22 20 mL 1% XYLOCAINE given in lab by Fransisco Palacios in Right Groin via Subcutaneous. Access site was Right Femoral Artery. WITH MP KIT 13:07:34 13:08:25 A wire was inserted via Fem Art (right). 13:08:26 HR=67 bpm, QIAM=633/103 mmhg, SpO2=95.0 %, Resp=14 B/min, Pain=0, Alla=10, Quintero=2 13:08:28 A SHEATH, FR5.5 PRELUDE 11CM FR 5 was advanced into the Fem Art (right) using the Percutane ous technique. 13:08:39 An injection in the Fem Art (right) was made through the SHEATH, FR5.5 PRELUDE 11CM FR 5. A JR 4.0 INFINITI CATHETER FR 5 was advanced over a wire. OMNIPAQUE, 350 MG, 150ML 150ML was us ed for 13:09:23 injections. Recorded Pressure: LV, HR=68, Condition=Condition 1 13:10:25 (Left Ventricle) LV 171/8/20 Recorded Pressure: LV, Ao, HR=68, Condition=Condition 1 13:10:41 (Left Ventricle) LV 174/7/14, (Aorta) Ao 175/85/125 13:11:08 The RCA was injected and visualized at various angles. OMNIPAQUE, 350 MG, 150ML 150ML used . Recorded Pressure: Ao, HR=66, Condition=Condition 1 13:12:28 (Aorta) Ao 165/87/123 13:12:42 The SVG-DIAG was injected and visualized at various angles. OMNIPAQUE, 350 MG, 150ML 150ML used. 13:13:21 HR=66 bpm, TMWG=929/96 mmhg, SpO2=95.0 %, Resp=16 B/min, Pain=0, Alla=10, Quintero=2 13:18:20 HR=67 bpm, NAFR=521/97 mmhg, SpO2=95.0 %, Resp=16 B/min, Pain=0, Alla=10, Quintero=2 13:19:46 The WORKMAN-LAD was injected and visualized at various angles. OMNIPAQUE, 350 MG, 150ML 150ML used. After removing the current catheter a AL 1 INFINITI CATHETER FR 5 was advanced over a WIRE, 3MM J .035 180CM 13:23:13 180CM. 13:23:23 HR=66 bpm, MGMU=556/100 mmhg, SpO2=95.0 %, Resp=17 B/min, Pain=0, Alla=10, Quintero=2 13:24:20 The SVG-OM was injected and visualized at various angles. OMNIPAQUE, 350 MG, 150ML 150ML us ed. After removing the current catheter a MPA-2 INFINITI CATHETER FR 5 was advanced over a WIRE, 3M MJ .035 180CM 13:26:11 180CM. 13:28:24 HR=69 bpm, KSXQ=612/102 mmhg, SpO2=95.0 %, Resp=12 B/min, Pain=0, Alla=10, Quintero=2 13:28:38 The SVG-RCA was injected and visualized at various angles. OMNIPAQUE, 350 MG, 150ML 150ML u sed. After removing the current catheter a JL 4.0 INFINITI CATHETER FR 5 was advanced over a WIRE, 3 MMJ .035 180CM 13:29:34 180CM. 13:33:23 HR=71 bpm, QNCQ=959/92 mmhg, SpO2=97.0 %, Resp=15 B/min, Pain=0, Alla=10, Quintero=2 13:38:26 HR=62 bpm, XBIQ=746/90 mmhg, SpO2=95.0 %, Resp=12 B/min, Pain=0, Alla=10, Quintero=2 13:41:34 Catheter was removed 13:43:27 HR=68 bpm, AYSW=625/98 mmhg, SpO2=98.0 %, Resp=20 B/min, Pain=0, Alla=10, Quintero=2 Assessment: Final Case, HR=67 BPM, Rhythm=REG, OSCY=249/98 mmhg, Chest Pain=0, Edema=None, Col or=Normal, Skin = Warm Right Pulses: Albaro Ped=2, Femoral=2, Radial=2 13:46:55 Lower Right Extremities: Color=Normal Neurological: State=Alert, Ox3, PLUNKETT Respiration: Resp=16 B/min, SpO2=98 % 13:47:24 Catheter(s) removed without difficulty 13:48:26 HR=66 bpm, LEXC=666/101 mmhg, SpO2=97.0 %, Resp=15 B/min, Pain=0, Alla=10, Quintero=2 13:48:52 Case End 13:49:08 Sterile dressing applied to site 13:49:08 No case complications noted. 13:49:09 Cine recording checked. 13:49:11 Bedside Report will be given. 13:49:14 A Left Heart Cath was performed. 13:53:12 Vitals capture stopped. End Study - Contrast Media Used In Study Contrast Total Opened (mL) Total Used (mL) Total Wasted (mL) Omnipaque 90 90 0 End Study - Maximum Contrast Load Max Contrast Load (mL) 454.3 End Study - Radiation Exposure Fluoro Time (minutes) 9.7 End Study - Patient Disposition Complications Transferred To No [facility] Contractor Holding
[2017-09-02] MEDS ORDERED: MISC INFORMATION XX ONE (14:15)
[2017-09-02] MEDS ORDERED: ISOSORBIDE MONONITRATE 30 MG TAB PO ONE (14:15)
[2017-09-02] MEDS ORDERED: SODIUM CHLOR 0.9% 250 ML INJ 250 ML IV PRN (14:15)
[2017-09-02] MEDS ORDERED: ATROPINE SULFATE 1 MG/ML VIAL IV PUSH PRN (14:15)
[2017-09-02 16:02] VITALS: BP 119/68; PULSE 71; RESP 19; TEMP 97.2; O2SAT 95
[2017-09-02 16:22] LABS: HEMOGLOBIN A1a 0.8 %; HEMOGLOBIN A1b 1.1 %; HEMOGLOBIN LA1C 1.4 %; HEMOGLOBIN P3 2.3 %
--- NOTE | 2017-09-02 16:41 | PD.CARD.PN ---
Subjective Subjective Remarks Post-cath Doing well no chest pain/SOB Objective Medications Current Medications Medications (Trade) Dose Ordered Sig/Pilo Route Start Time Stop Time Status Last Admin (Heparin Inj) 5,000 units UNSCH PRN IV PUSH 09/01/17 16:00 (Heparin Inj) 2,500 units UNSCH PRN IV PUSH 09/01/17 16:00 Heparin Sodium/ Dextrose 250 ml @ 8.64 mls/hr TITRATE PRN IV 09/01/17 11:00 09/01/17 11:05 (Ecotrin Ec) 81 mg DAILY PO 09/02/17 09:00 09/02/17 08:45 (Plavix) 75 mg DAILY PO 09/02/17 09:00 09/02/17 08:44 (Synthroid) 50 mcg DAILY@0600 PO 09/02/17 06:00 09/02/17 05:44 (Prinivil) 30 mg DAILY PO 09/02/17 09:00 09/02/17 08:44 (Toprol Xl) 25 mg DAILY PO 09/02/17 09:00 09/02/17 08:44 (Protonix) 40 mg DAILY PO 09/02/17 09:00 09/02/17 08:44 (Vitamin C) 500 mg DAILY PO 09/02/17 09:00 09/02/17 08:45 (Vitamin D3) 1,000 units DAILY PO 09/02/17 09:00 09/02/17 08:45 Sodium Chloride 1,000 ml @ 83 mls/hr Q12H3M IV 09/01/17 12:14 09/02/17 00:17 (NS Flush) 2 ml UNSCH PRN IV FLUSH 09/01/17 12:15 (NS Flush) 2 ml BID IV FLUSH 09/01/17 21:00 09/02/17 08:45 (Tylenol) 650 mg Q4H PRN PO 09/01/17 12:15 (Zofran Inj) 4 mg Q6H PRN IVP 09/01/17 12:15 (Narcan Inj) 0.4 mg UNSCH PRN IV PUSH 09/01/17 12:15 (Jamila-Colace) 1 tab BID PO 09/01/17 21:00 09/01/17 20:41 (Milk Of Magnesia Liq) 30 ml Q12H PRN PO 09/01/17 12:15 (Senokot) 17.2 mg Q12H PRN PO 09/01/17 12:15 (Dulcolax Supp) 10 mg DAILY PRN RECTAL 09/01/17 12:15 (Lactulose Liq) 30 ml DAILY PRN PO 09/01/17 12:15 (Lipitor) 80 mg HS PO 09/02/17 21:00 (Atropine Inj) 0.5 mg UNSCH PRN IV PUSH 09/02/17 14:15 Sodium Chloride 250 ml @ 500 mls/hr ONCE PRN IV 09/02/17 14:15 09/03/17 14:14 (Imdur) 30 mg DAILY@07 PO 09/03/17 07:00 (Norvasc) 5 mg DAILY PO 09/03/17 09:00 Vital Signs / I&O Vital Signs Date Time Temp Pulse Resp B/P (MAP) Pulse Ox O2 Delivery O2 Flow Rate FiO2 09/02/17 14:24 97 Room Air 09/02/17 12:02 97.3 63 19 154/78 (103) 97 09/02/17 08:02 97.3 65 19 153/79 (103) 97 09/02/17 08:00 66 09/02/17 04:00 98.0 84 19 132/70 (90) 95 09/01/17 20:55 79 09/01/17 20:00 98.4 75 18 131/78 (95) 98 I/O 09/01/17 09/01/17 09/01/17 09/02/17 09/02/17 09/02/17 07:00 15:00 23:00 07:00 15:00 23:00 Intake Total 0 ml Output Total 350 ml Balance -350 ml Intake Oral 0 ml Output Urine Total 350 ml # Bowel Movements 0 Physical Exam GENERAL: NAD, AAOx3 SKIN: Warm and dry. HEAD: Atraumatic. Normocephalic. EYES: Pupils equal and round. No scleral icterus. No injection or drainage. ENT: No nasal bleeding or discharge. Mucous membranes pink and moist. NECK: Trachea midline. No JVD. CARDIOVASCULAR: Regular rate and rhythm. RESPIRATORY: No accessory muscle use. Clear to auscultation. Breath sounds equal bilaterally. GASTROINTESTINAL: Abdomen soft, non-tender, nondistended. Hepatic and splenic margins not palpable. MUSCULOSKELETAL: Extremities without clubbing, cyanosis, or edema. No obvious deformities. Right groin no hematoma, neurovascularly intact NEUROLOGICAL: Awake and alert. No obvious cranial nerve deficits. Motor grossly within normal limits. Five out of 5 muscle strength in the arms and legs. Normal speech. PSYCHIATRIC: Appropriate mood and affect; insight and judgment normal. Laboratory Laboratory Tests Test 09/01/17 20:00 09/02/17 03:40 Activated Partial Thromboplast Time 40.2 SEC 45.8 SEC Total Creatine Kinase 88 U/L Troponin I 0.32 NG/ML Free Thyroxine 1.00 NG/DL Thyroid Stimulating Hormone 3rd Gen 3.110 uIU/ML White Blood Count 7.2 TH/MM3 Red Blood Count 4.43 MIL/MM3 Hemoglobin 13.0 GM/DL Hematocrit 37.0 % Mean Corpuscular Volume 83.4 FL Mean Corpuscular Hemoglobin 29.2 PG Mean Corpuscular Hemoglobin Concent 35.0 % Red Cell Distribution Width 15.1 % Platelet Count 176 TH/MM3 Mean Platelet Volume 8.7 FL Neutrophils (%) (Auto) 59.2 % Lymphocytes (%) (Auto) 24.1 % Monocytes (%) (Auto) 10.5 % Eosinophils (%) (Auto) 5.8 % Basophils (%) (Auto) 0.4 % Neutrophils # (Auto) 4.3 TH/MM3 Lymphocytes # (Auto) 1.7 TH/MM3 Monocytes # (Auto) 0.8 TH/MM3 Eosinophils # (Auto) 0.4 TH/MM3 Basophils # (Auto) 0.0 TH/MM3 CBC Comment DIFF FINAL Differential Comment Blood Urea Nitrogen 13 MG/DL Creatinine 0.88 MG/DL Random Glucose 90 MG/DL Calcium Level 8.6 MG/DL Aspartate Amino Transf (AST/SGOT) 26 U/L Alanine Aminotransferase (ALT/SGPT) 24 U/L Sodium Level 140 MEQ/L Potassium Level 4.1 MEQ/L Chloride Level 105 MEQ/L Carbon Dioxide Level 28.0 MEQ/L Anion Gap 7 MEQ/L Estimat Glomerular Filtration Rate 84 ML/MIN Assessment and Plan Problem List: (1) Unstable angina ICD Codes: I20.0 - Unstable angina Status: Acute (2) Elevated troponin ICD Codes: R74.8 - Abnormal levels of other serum enzymes (3) CAD (coronary artery disease) ICD Codes: I25.10 - Atherosclerotic heart disease of [place] coronary artery without angina pectoris (4) Hx of CABG ICD Codes: Z95.1 - Presence of aortocoronary bypass graft (5) Accelerated hypertension ICD Codes: I10 - Essential (primary) hypertension Assessment and Plan 1) Post cath CABGx4 (4/4 patent) Otherwise small de[place] vessels 2) Increase medical management Imdur 30mg Norvasc 5mg Con't Lopressor Consider Ranexa 3) BP control 4) Watch overnight and if stable DC home tomorrow Follow up with Dr. Luo If fails medical management, will consider POBA of LAD, or possibly LCx Fransisco Palacios DO Sep 02, 2017 16:41
[2017-09-02 20:00] VITALS: BP 95/62; PULSE 75; PULSE 83; RESP 18; TEMP 97; O2SAT 95
[2017-09-02] MEDS ORDERED: ATORVASTATIN 80 MG TAB PO SCH (21:00)
--- NOTE | 2017-09-02 22:21 | MA ---
cc: FRANSISCO MATSON DO DATE OF PROCEDURE September 02, 2017 PROCEDURE Left heart catheterization, coronary angiogram, bypass angiogram, moderate sedation 45 minutes. PREPROCEDURE DIAGNOSIS Elevated troponin, angina. POSTPROCEDURE DIAGNOSIS CABG X 4 (4/4 bypass grafts patent), severe [place] vessel disease. MEDICATIONS Fentanyl 25 micrograms. Versed 0.5 milligrams. CONTRAST USED 90 cc. FLUOROSCOPY. 9.7 minutes MODERATE SEDATION 45 minutes. ESTIMATED BLOOD LOSS 10 cc. PROCEDURAL SUMMARY Simone Carrizales is a pleasant 77-year-old male who sees my partner, Dr. Luo, in the office who presented to [facility] on September 01, 2017 due to angina. He was found to have a mildly elevated troponin and because of this he was recommended cardiac catheterization. Risks, benefits and alternatives were explained to him he consented as such. He was brought to lab and prepped in the usual sterile fashion. Right femoral artery was accessed using a modified Seldinger technique and placement of a 5/6 [place] slender sheath. This was easily aspirated and flushed. A JR-4 was advanced over a J-wire to the ascending aorta and across the aortic valve for measurement of left ventricular pressure. This was pulled back across the aortic valve showing no significant gradient of aortic stenosis. JR-4 was used for selective angiography of the right coronary artery, saphenous vein graft to the diagonal as well as the WORKMAN to LAD. This was exchanged out for an AL-1 which was used for selective angiography of the SVG to the obtuse marginal. This was exchanged out for a multipurpose which was used for selective angiography of the SVG to the PDA. This was exchanged out for a JL-4 which was used for selective angiography of the left coronary artery system. JL-4 was removed over a J-wire and sheath was sutured in place with a plan to remove with pressure held for hemostasis. The patient left the laboratory machinist cardiovascularly stable. FINDINGS Left main: Small to moderate size vessel with 10-20% disease in the midportion. It bifurcates into an LAD and circumflex. LAD: 99% in the proximal portion, giving off one major septal red leader before 100% occlusion. Left circumflex: Small vessel with a 90-95% stenosis ostial and proximal and a 90% stenosis in the midportion. First obtuse marginal appears to be occluded. Second obtuse marginal is overall small. RCA: Small vessel 100% occluded in the midportion. WORKMAN to LAD: Patent with mild tortuosity. An anastomosis into the mid-LAD with a 90% stenosis after the touchdown on the LAD. SVG to diagonal: Patent with no significant disease. This also supplies some collaterals to the distal first obtuse marginal. SVG to OM: Patent and touches down on to a small obtuse marginal which somewhat fills into the distal circumflex. SVG to PDA: Patent with no significant disease. It retrogradely fills the RCA. Antegrade fills a distal PLV branch which is overall a small branch with a 99% stenosis. LVEDP 14. IMPRESSION 1. Elevated troponin. 2. Angina. 3. Coronary artery disease. 4. Coronary artery bypass grafting x4 (4/4 grafts patent). RECOMMENDATIONS 1. Mr. Carrizales presented with angina and had a mildly elevated troponin which was overall relatively flat. 2. 4/4 bypass grafts are patent but overall he has significant [place] coronary artery disease which may be part of his angina, although these vessels are overall relatively small. 3. He also had accelerated hypertension on arrival which may also be part of his angina. 4. Because of this I have recommended increasing his medical management including adding Imdur and Norvasc not only for their antianginal but their antihypertensive properties. 5. Overall, he needs blood pressure control. 6. If still having angina after better blood pressure control on optimal medical therapy consideration could be made for intervention on his [place] vessels to help with the angina, although, my overall concern is these vessels are small and most likely would only be able to be balloon angioplastied and not stented. 7. He will be watched overnight and if stable discharged in the morning to follow up with Dr. Luo. Thank you for allowing me to see Simone Carrizales. If there are any questions please do not hesitate to call. Fransisco Matson DO VGP/EO /9:51 PM /10:04 PM
[2017-09-03] VITALS: BP 101/56; PULSE 76; RESP 16; TEMP 97.3; O2SAT 98
[2017-09-03] MEDS: SODIUM CHLOR 0.9% 1000 ML INJ 1,000 ML IV SCH ×2 (00:23→12:26)
[2017-09-03 04:00] VITALS: BP 116/56; PULSE 81; RESP 16; TEMP 97.1; O2SAT 96
[2017-09-03] MEDS: LEVOTHYROXINE SODIUM 50 MCG TAB PO SCH (05:57)
[2017-09-03] MEDS ORDERED: ISOSORBIDE MONONITRATE 30 MG TAB PO SCH (07:00)
[2017-09-03 08:00] VITALS: BP_SYST 100; BP_SYST 136; BP_DIAS 62; BP_DIAS 89; PULSE 140; PULSE 84; RESP 18; RESP 20; TEMP 97.2; TEMP 97.6; O2SAT 94; O2SAT 97
[2017-09-03 08:21] LABS: AUTOMATED NEUTROPHIL # 5.7 TH/MM3 (1.8-7.7); BASOPHIL # 0.1 TH/MM3 (0-0.2); BASOPHIL % 1.1 % (0.0-2.0); EOSINOPHIL # 0.2 TH/MM3 (0-0.4); EOSINOPHIL % 2.8 % (0.0-4.0); HEMATOCRIT 36.2 % (39.0-51.0); HEMO FLAGS DIFF FINAL; LYMPH % 12.6 % (9.0-44.0); MEAN CORPUSCULAR HEMOGLOBIN 28.9 PG (27.0-34.0); MEAN CORPUSCULAR HGB CONC 34.3 % (32.0-36.0); NEUT % 72.5 % (16.0-70.0); PLATELET COUNT 190 TH/MM3 (150-450); RED BLOOD COUNT 4.31 MIL/MM3 (4.50-5.90); RED CELL DISTRIBUTION WIDTH 15.4 % (11.6-17.2); WHITE BLOOD COUNT 7.8 TH/MM3 (4.0-11.0)
[2017-09-03] MEDS: LISINOPRIL 10 MG TAB PO SCH (08:48)
[2017-09-03 08:49] LABS: BICARBONATE 23.6 MEQ/L (21.0-32.0)
[2017-09-03] MEDS: DOCUSATE SODIUM 50 MG/SENNA 8.6 MG TAB PO SCH (08:49)
[2017-09-03] MEDS: CLOPIDOGREL 75 MG TAB PO SCH (08:49)
[2017-09-03] MEDS: SODIUM CHLORIDE 0.9% FLUSH 10 ML FLUSH IV FLUSH SCH (08:49)
[2017-09-03] MEDS: PANTOPRAZOLE SOD 40 MG DELAYED RELEASE TAB PO SCH (08:49)
[2017-09-03] MEDS: ASCORBIC ACID 500 MG TAB PO SCH (08:49)
[2017-09-03] MEDS: METOPROLOL SUCCINATE 25 MG EXTENDED RELEASE TAB PO SCH (08:49)
[2017-09-03] MEDS: CHOLECALCIFEROL (VIT D3) 1000 UNIT TAB PO SCH (08:49)
[2017-09-03] MEDS: ASPIRIN EC 81 MG TABEC PO SCH (08:49)
[2017-09-03] MEDS ORDERED: amLODIPine BESYLATE 5 MG TAB PO SCH (09:00)
--- NOTE | 2017-09-03 10:47 | PD.CARD.PN ---
Subjective Subjective Remarks Doing well No chest pain/SOB Up and ambulating Objective Medications Current Medications Medications (Trade) Dose Ordered Sig/Pilo Route Start Time Stop Time Status Last Admin (Heparin Inj) 5,000 units UNSCH PRN IV PUSH 09/01/17 16:00 (Heparin Inj) 2,500 units UNSCH PRN IV PUSH 09/01/17 16:00 Heparin Sodium/ Dextrose 250 ml @ 8.64 mls/hr TITRATE PRN IV 09/01/17 11:00 09/01/17 11:05 (Ecotrin Ec) 81 mg DAILY PO 09/02/17 09:00 09/03/17 08:49 (Plavix) 75 mg DAILY PO 09/02/17 09:00 09/03/17 08:49 (Synthroid) 50 mcg DAILY@0600 PO 09/02/17 06:00 09/03/17 05:57 (Prinivil) 30 mg DAILY PO 09/02/17 09:00 09/03/17 08:48 (Toprol Xl) 25 mg DAILY PO 09/02/17 09:00 09/03/17 08:49 (Protonix) 40 mg DAILY PO 09/02/17 09:00 09/03/17 08:49 (Vitamin C) 500 mg DAILY PO 09/02/17 09:00 09/03/17 08:49 (Vitamin D3) 1,000 units DAILY PO 09/02/17 09:00 09/03/17 08:49 Sodium Chloride 1,000 ml @ 83 mls/hr Q12H3M IV 09/01/17 12:14 09/02/17 00:17 (NS Flush) 2 ml UNSCH PRN IV FLUSH 09/01/17 12:15 (NS Flush) 2 ml BID IV FLUSH 09/01/17 21:00 09/03/17 08:49 (Tylenol) 650 mg Q4H PRN PO 09/01/17 12:15 (Zofran Inj) 4 mg Q6H PRN IVP 09/01/17 12:15 (Narcan Inj) 0.4 mg UNSCH PRN IV PUSH 09/01/17 12:15 (Jamila-Colace) 1 tab BID PO 09/01/17 21:00 09/03/17 08:49 (Milk Of Magnesia Liq) 30 ml Q12H PRN PO 09/01/17 12:15 (Senokot) 17.2 mg Q12H PRN PO 09/01/17 12:15 (Dulcolax Supp) 10 mg DAILY PRN RECTAL 09/01/17 12:15 (Lactulose Liq) 30 ml DAILY PRN PO 09/01/17 12:15 (Lipitor) 80 mg HS PO 09/02/17 21:00 09/02/17 20:55 (Atropine Inj) 0.5 mg UNSCH PRN IV PUSH 09/02/17 14:15 Sodium Chloride 250 ml @ 500 mls/hr ONCE PRN IV 09/02/17 14:15 09/03/17 14:14 (Imdur) 30 mg DAILY@07 PO 09/03/17 07:00 09/03/17 05:57 (Norvasc) 5 mg DAILY PO 09/03/17 09:00 09/03/17 08:49 Vital Signs / I&O Vital Signs Date Time Temp Pulse Resp B/P (MAP) Pulse Ox O2 Delivery O2 Flow Rate FiO2 09/03/17 08:00 97.2 84 18 100/62 (75) 94 09/03/17 04:00 97.1 81 16 116/56 (76) 96 09/03/17 00:00 97.3 76 16 101/56 (71) 98 09/02/17 20:00 75 09/02/17 20:00 97.0 83 18 95/62 (73) 95 09/02/17 16:02 97.2 71 19 119/68 (85) 95 09/02/17 14:24 97 Room Air 09/02/17 12:02 97.3 63 19 154/78 (103) 97 I/O 09/02/17 09/02/17 09/02/17 09/03/17 09/03/17 09/03/17 06:59 14:59 22:59 06:59 14:59 22:59 Intake Total 0 ml 420 ml 240 ml Output Total 350 ml 1200 ml 300 ml Balance -350 ml -780 ml -60 ml Intake Oral 0 ml 420 ml 240 ml Output Urine Total 350 ml 1200 ml 300 ml # Bowel Movements 0 1 1 Physical Exam GENERAL: NAD, AAOx3 SKIN: Warm and dry. HEAD: Atraumatic. Normocephalic. EYES: Pupils equal and round. No scleral icterus. No injection or drainage. ENT: No nasal bleeding or discharge. Mucous membranes pink and moist. NECK: Trachea midline. No JVD. CARDIOVASCULAR: Regular rate and rhythm. RESPIRATORY: No accessory muscle use. Clear to auscultation. Breath sounds equal bilaterally. GASTROINTESTINAL: Abdomen soft, non-tender, nondistended. Hepatic and splenic margins not palpable. MUSCULOSKELETAL: Extremities without clubbing, cyanosis, or edema. No obvious deformities. Right groin no hematoma, mild ecchymosis, neurovascularly intact NEUROLOGICAL: Awake and alert. No obvious cranial nerve deficits. Motor grossly within normal limits. Five out of 5 muscle strength in the arms and legs. Normal speech. PSYCHIATRIC: Appropriate mood and affect; insight and judgment normal. Laboratory Laboratory Tests Test 09/03/17 06:30 White Blood Count 7.8 TH/MM3 Red Blood Count 4.31 MIL/MM3 Hemoglobin 12.4 GM/DL Hematocrit 36.2 % Mean Corpuscular Volume 84.0 FL Mean Corpuscular Hemoglobin 28.9 PG Mean Corpuscular Hemoglobin Concent 34.3 % Red Cell Distribution Width 15.4 % Platelet Count 190 TH/MM3 Mean Platelet Volume 9.3 FL Neutrophils (%) (Auto) 72.5 % Lymphocytes (%) (Auto) 12.6 % Monocytes (%) (Auto) 11.0 % Eosinophils (%) (Auto) 2.8 % Basophils (%) (Auto) 1.1 % Neutrophils # (Auto) 5.7 TH/MM3 Lymphocytes # (Auto) 1.0 TH/MM3 Monocytes # (Auto) 0.9 TH/MM3 Eosinophils # (Auto) 0.2 TH/MM3 Basophils # (Auto) 0.1 TH/MM3 CBC Comment DIFF FINAL Differential Comment Blood Urea Nitrogen 14 MG/DL Creatinine 0.92 MG/DL Random Glucose 91 MG/DL Calcium Level 9.0 MG/DL Sodium Level 136 MEQ/L Potassium Level 4.0 MEQ/L Chloride Level 103 MEQ/L Carbon Dioxide Level 23.6 MEQ/L Anion Gap 9 MEQ/L Estimat Glomerular Filtration Rate 80 ML/MIN Assessment and Plan Problem List: (1) Unstable angina ICD Codes: I20.0 - Unstable angina Status: Acute (2) Elevated troponin ICD Codes: R74.8 - Abnormal levels of other serum enzymes (3) CAD (coronary artery disease) ICD Codes: I25.10 - Atherosclerotic heart disease of [place] coronary artery without angina pectoris (4) Hx of CABG ICD Codes: Z95.1 - Presence of aortocoronary bypass graft (5) Accelerated hypertension ICD Codes: I10 - Essential (primary) hypertension Assessment and Plan 1) Post cath CABGx4 (4/4 patent) Otherwise small [place] vessels 2) Increase medical management Imdur 30mg Norvasc 5mg Con't Lopressor Consider Ranexa 3) BP control 4) Mild drop in Hgb, BP mildly low most likely secondary to meds Will recheck CBC later today and if stable then plan to discharge If concern, then will plan on CT Abd/Pel without contrast 5) Follow up with Dr. Luo on discharge Fransisco Palacios DO Sep 03, 2017 10:47
[2017-09-03 12:00] VITALS: BP 116/65; PULSE 71; RESP 18; TEMP 97.2; O2SAT 97
[2017-09-03 12:08] VITALS: BP 124/84; PULSE 70; RESP 18; TEMP 98.3; O2SAT 96
--- NOTE | 2017-09-03 12:53 | HHI.PR ---
Subjective Remarks resting comfortably with no distress. no chest pain or sob. Objective Vitals Vital Signs Date Time Temp Pulse Resp B/P (MAP) Pulse Ox O2 Delivery O2 Flow Rate FiO2 09/03/17 12:08 98.3 70 18 124/84 (97) 96 09/03/17 08:00 97.6 140 20 136/89 (105) 97 09/03/17 08:00 97.2 84 18 100/62 (75) 94 09/03/17 04:00 97.1 81 16 116/56 (76) 96 09/03/17 00:00 97.3 76 16 101/56 (71) 98 09/02/17 20:00 75 09/02/17 20:00 97.0 83 18 95/62 (73) 95 09/02/17 16:02 97.2 71 19 119/68 (85) 95 09/02/17 14:24 97 Room Air I/O 09/02/17 09/02/17 09/02/17 09/03/17 09/03/17 09/03/17 07:00 15:00 23:00 07:00 15:00 23:00 Intake Total 0 ml 420 ml 240 ml Output Total 350 ml 1200 ml 300 ml Balance -350 ml -780 ml -60 ml Intake Oral 0 ml 420 ml 240 ml Output Urine Total 350 ml 1200 ml 300 ml # Bowel Movements 0 1 1 Result Diagram: 09/03/17 0630 09/03/17 0630 Imaging Last Impressions Chest X-Ray 09/01/17 0958 Signed Impressions: Service Date/Time: Friday, September 01, 2017 10:28 - CONCLUSION: Underinflation with mild atelectasis at the lung bases. Otherwise, no acute finding is identified. Alber Saenz MD Objective Remarks GENERAL: This is a well-nourished, well-developed patient, in no apparent distress. CARDIOVASCULAR: Regular rate and regular rhythm without murmurs, gallops, or rubs. RESPIRATORY: Clear to auscultation. Breath sounds equal bilaterally. No wheezes , rales, or rhonchi. GASTROINTESTINAL: Abdomen soft, non-tender, nondistended. Normal, active bowel sounds MUSCULOSKELETAL: Extremities without clubbing, cyanosis, or edema. NEURO: Alert & Oriented x4 to person, place, time, situation. Moves all ext x4 Procedures cardiac cath Medications and IVs Current Medications Sodium Chloride (NS Flush) 2 ml UNSCH PRN IVF FLUSH AFTER USING IV ACCESS; Start 09/01/17 at 10:00; Stop 09/01/17 at 14:02; Status DC Heparin Sodium (Porcine) (Heparin Inj) 4,000 units ONCE ONCE IV PUSH Last administered on 09/01/17 11:03; Start 09/01/17 at 10:00; Stop 09/01/17 at 10:02 ; Status DC Heparin Sodium (Porcine) (Heparin Inj) 5,000 units UNSCH PRN IV PUSH APTT LESS THAN 25; Start 09/01/17 at 16:00 Heparin Sodium (Porcine) (Heparin Inj) 2,500 units UNSCH PRN IV PUSH APTT 25 TO 39; Start 09/01/17 at 16:00 Heparin Sodium/ Dextrose 250 ml @ 8.64 mls/hr TITRATE PRN IV Coagulation Management Last administered on 09/01/17 11:05; Start 09/01/17 at 11:00 Aspirin (Ecotrin Ec) 81 mg DAILY PO Last administered on 09/03/17 08:49; Start 09/02/17 at 09:00 Clopidogrel Bisulfate (Plavix) 75 mg DAILY PO Last administered on 09/03/17 08 :49; Start 09/02/17 at 09:00 Levothyroxine Sodium (Synthroid) 50 mcg DAILY@0600 PO Last administered on 09/03 05:57; Start 09/02/17 at 06:00 Lisinopril (Prinivil) 30 mg DAILY PO Last administered on 09/03/17 08:48; Start 09/02/17 at 09:00 Metoprolol Succinate (Toprol Xl) 25 mg DAILY PO Last administered on 09/03/17 08:49; Start 09/02/17 at 09:00 Pantoprazole Sodium (Protonix) 40 mg DAILY PO Last administered on 09/03/17 08 :49; Start 09/02/17 at 09:00 Ascorbic Acid (Vitamin C) 500 mg DAILY PO Last administered on 09/03/17 08:49 ; Start 09/02/17 at 09:00 Cholecalciferol (Vitamin D3) 1,000 units DAILY PO Last administered on 08:49; Start 09/02/17 at 09:00 Sodium Chloride 1,000 ml @ 83 mls/hr Q12H3M IV Last administered on 09/02/17 00:17; Start 09/01/17 at 12:14 Sodium Chloride (NS Flush) 2 ml UNSCH PRN IV FLUSH FLUSH AFTER USING IV ACCESS ; Start 09/01/17 at 12:15 Sodium Chloride (NS Flush) 2 ml BID IV FLUSH Last administered on 09/03/17 08: 49; Start 09/01/17 at 21:00 Acetaminophen (Tylenol) 650 mg Q4H PRN PO TEMP > 100.4; Start 09/01/17 at 12:15 Ondansetron HCl (Zofran Inj) 4 mg Q6H PRN IVP NAUSEA OR VOMITING; Start at 12:15 Naloxone HCl (Narcan Inj) 0.4 mg UNSCH PRN IV PUSH SEE LABEL COMMENTS; Start 09/01/17 at 12:15 Senna/Docusate Sodium (Jamila-Colace) 1 tab BID PO Last administered on 08:49; Start 09/01/17 at 21:00 Magnesium Hydroxide (Milk Of Magnesia Liq) 30 ml Q12H PRN PO Mild constipation ; Start 09/01/17 at 12:15 Sennosides (Senokot) 17.2 mg Q12H PRN PO Moderate constipation; Start 09/01/17 at 12:15 Bisacodyl (Dulcolax Supp) 10 mg DAILY PRN RECTAL SEVERE CONSITIPATION; Start 09/01/17 at 12:15 Lactulose (Lactulose Liq) 30 ml DAILY PRN PO SEVERE CONSITIPATION; Start at 12:15 Atorvastatin Calcium (Lipitor) 80 mg HS PO Last administered on 09/02/17 20:55 ; Start 09/02/17 at 21:00 Heparin Sodium/ Sodium Chloride 1,000 ml @ As Directed STK-MED ONCE .ROUTE Last administered on 09/02/17 12:35; Start 09/02/17 at 12:35; Stop 09/02/17 at 12:36; Status DC Midazolam HCl (Versed Inj) 2 mg STK-MED ONCE .ROUTE Last administered on 13:03; Start 09/02/17 at 12:36; Stop 09/02/17 at 12:37; Status DC Fentanyl Citrate (fentaNYL INJ) 100 mcg STK-MED ONCE .ROUTE Last administered on 09/02/17 13:02; Start 09/02/17 at 12:36; Stop 09/02/17 at 12:37; Status DC Miscellaneous Information 1 ONCE ONCE XX ; Start 09/02/17 at 14:15; Stop at 14:23; Status DC Atropine Sulfate (Atropine Inj) 0.5 mg UNSCH PRN IV PUSH VAGAL REPONSE; Start 09/02/17 at 14:15 Sodium Chloride 250 ml @ 500 mls/hr ONCE PRN IV VAGAL REPONSE; Start 09/02/17 at 14:15; Stop 09/03/17 at 14:14 Isosorbide Mononitrate (Imdur) 30 mg DAILY@07 PO Last administered on 05:57; Start 09/03/17 at 07:00 Isosorbide Mononitrate (Imdur) 30 mg ONCE ONCE PO Last administered on 14:15; Start 09/02/17 at 14:15; Stop 09/02/17 at 14:23; Status DC Amlodipine Besylate (Norvasc) 5 mg DAILY PO Last administered on 09/03/17 08: 49; Start 09/03/17 at 09:00 Iohexol (OMNIPAQUE 350 INJ (Airplane Tester)) 100 ml STK-MED ONCE OTHER ; Start at 12:17; Stop 09/03/17 at 10:05; Status DC A/P Assessment and Plan A/P 1. Unstable Angina patient of research quality assurance specialist doctor Puja who was sent for Cardiac Cath to be performed. today. s/p cardiac cath with ; 4/4 bypass grafts are patent but overall he has significant [place] coronary artery disease which may be part of his angina, although these vessels are overall relatively small. continue aspirin, plavix, lisinopril and metoprolol.added imdur and amlodipine. cardiology f/u appreciated and d/w today. 2. OA 3. Squamous Cell Ca history 4. CAD status post PCI 2009 and stent placement/CABG x 5 5. Hyperlipidemia - will add statin- 6. Hypertension continue Home medicines 7. Hypothyroidism continue Hormonal replacement. DVT Prophylaxis with Heparin. Discharge Planning dc home later this afternoon if H/H stable. see med list. d/w the patient and . f/u; pcp and cardiology. Tejas Caceres MD Sep 03, 2017 12:53
[2017-09-03] MEDS ORDERED: ISOS30TA3 PO (12:55)
[2017-09-03] MEDS ORDERED: ATOR80TA45 PO (12:55)
[2017-09-03] MEDS ORDERED: AMLO5 PO (12:55)
--- NOTE | 2017-09-03 12:56 | HHI.DS ---
Discharge Summary Admission Date Sep 01, 2017 at 12:16 Discharge Date: Sep 03, 2017 Admitting Diagnosis unstable angina (1) Unstable angina ICD Code: I20.0 - Unstable angina Diagnosis: Principal Status: Acute Procedures cardiac cath Brief History - From Admission This is a pleasant 77 y/o male presents to ER at the request of his monitor car operator for admission for cardiac catheterization. This patient reports chest pain intermittently for the last couple weeks. He has chest pain with exertion. Pain is relieved by rest. Pain usually last about 10 minutes. He estimates about 10 episodes in the last 2 weeks. He denies any associated nausea or diaphoresis. He states that his chest pain is a 7/10 when he has pain but that he is not currently having any pain. He states that he had a stress test done by his monitor car operator about 3 months ago and that it was abnormal. He states that his monitor car operator wanted him to have a catheterization at that time but he was leaving to go to [place] for the summer. He reports that he has had chest pain with exertion intermittently since that time and that it has become acutely worse over the last couple weeks.The patient states he lives in [place] where he has another property and came to [facility] last Thursday, he went to see his Primary academic specialist who asked him to go today for an ECG, he is been feeling chest pain for the last three weeks as an Oppressive sensation radiated to the back, yesterday particularly worse 8/10 in intensity. was sent to ER for Admission thinking in Cardiac Cath tomorrow. his first set of Troponin are elevated 0.35 was started on Heparin. CBC/BMP: 09/03/17 0630 09/03/17 0630 Significant Findings Laboratory Tests Test 09/01/17 10:15 09/01/17 16:10 09/01/17 20:00 09/02/17 03:40 Eosinophils (%) (Auto) 4.8 % (0.0-4.0) 5.8 % (0.0-4.0) Random Glucose 120 MG/DL (74-106) Estimat Glomerular Filtration Rate 71 ML/MIN (>89) 84 ML/MIN (>89) Creatine Kinase MB 4.1 NG/ML (0.5-3.6) Troponin I 0.35 NG/ML (0.02-0.05) 0.39 NG/ML (0.02-0.05) 0.32 NG/ML (0.02-0.05) Cholesterol Level 217 MG/DL (120-200) LDL Cholesterol 148 MG/DL (0-99) Activated Partial Thromboplast Time 40.2 SEC (24.3-30.1) 45.8 SEC (24.3-30.1) Red Blood Count 4.43 MIL/MM3 (4.50-5.90) Hematocrit 37.0 % (39.0-51.0) Monocytes (%) (Auto) 10.5 % (0.0-8.0) Test 09/03/17 06:30 Red Blood Count 4.31 MIL/MM3 (4.50-5.90) Hemoglobin 12.4 GM/DL (13.0-17.0) Hematocrit 36.2 % (39.0-51.0) Neutrophils (%) (Auto) 72.5 % (16.0-70.0) Monocytes (%) (Auto) 11.0 % (0.0-8.0) Estimat Glomerular Filtration Rate 80 ML/MIN (>89) Imaging Last Impressions Chest X-Ray 09/01/17 0958 Signed Impressions: Service Date/Time: Friday, September 01, 2017 10:28 - CONCLUSION: Underinflation with mild atelectasis at the lung bases. Otherwise, no acute finding is identified. Alber Saenz MD PE at Discharge GENERAL: This is a well-nourished, well-developed patient, in no apparent distress. CARDIOVASCULAR: Regular rate and regular rhythm without murmurs, gallops, or rubs. RESPIRATORY: Clear to auscultation. Breath sounds equal bilaterally. No wheezes , rales, or rhonchi. GASTROINTESTINAL: Abdomen soft, non-tender, nondistended. Normal, active bowel sounds MUSCULOSKELETAL: Extremities without clubbing, cyanosis, or edema. NEURO: Alert & Oriented x4 to person, place, time, situation. Moves all ext x4 Hospital Course 1. Unstable Angina patient of academic specialist doctor Puja who was sent for Cardiac Cath to be performed. today. s/p cardiac cath with ; 4/4 bypass grafts are patent but overall he has significant [place] coronary artery disease which may be part of his angina, although these vessels are overall relatively small. continue aspirin, plavix, lisinopril and metoprolol.added imdur and amlodipine. cardiology f/u appreciated and d/w today. 2. OA 3. Squamous Cell Ca history 4. CAD status post PCI 2009 and stent placement/CABG x 5 5. Hyperlipidemia - will add statin- 6. Hypertension continue Home medicines 7. Hypothyroidism continue Hormonal replacement. Pt Condition on Discharge: Good Discharge Disposition: Discharge Home Discharge Time: <= 30 minutes Discharge Instructions DIET: Follow Instructions for: Heart Healthy Diet Activities you can perform: Regular-No Restrictions Follow up Referrals: Cardiology PCP Follow-up New Medications: Amlodipine (Norvasc) 5 Mg Tab 5 MG PO DAILY for cad for 30 Days, #30 TAB 0 Refills Atorvastatin (Atorvastatin) 80 Mg Tab 80 MG PO HS for cad for 30 Days, TAB 0 Refills Isosorbide Mononitrate ER (Isosorbide Mononitrate ER) 30 Mg Hue 30 MG PO DAILY@07 for cad for 30 Days, TAB 0 Refills Continued Medications: Ascorbic Acid (Vitamin C) 250 Mg Tab 500 MG PO DAILY for Nutritional Supplement, TAB [address] (Aspirin Adult Low Strength) 81 Mg Tabdr 81 MG PO DAILY, TAB Cholecalciferol (Vitamin D-3) 1,000 Unit Cap 1000 UNITS PO DAILY Clopidogrel (Plavix) 75 Mg Tab 75 MG PO DAILY for Blood Clot Prevention, #30 TAB 0 Refills Levothyroxine (Levothyroxine) 50 Mcg Tab 50 MCG PO DAILY for Thyroid, #30 TAB 0 Refills Lisinopril (Lisinopril) 10 Mg Tab 30 MG PO DAILY, #30 TAB 0 Refills Metoprolol Succinate ER 24 HR (Metoprolol Succinate ER 24 HR) 25 Mg Tab 25 MG PO DAILY, #30 TAB 0 Refills Pantoprazole (Protonix) 40 Mg Tab 40 MG PO DAILY for Reflux, #30 TAB 0 Refills Tejas Caceres MD Sep 03, 2017 12:56
[2017-09-03 14:34] LABS: AUTOMATED NEUTROPHIL # 6.6 TH/MM3 (1.8-7.7); BASOPHIL # 0.1 TH/MM3 (0-0.2); BASOPHIL % 1.1 % (0.0-2.0); EOSINOPHIL # 0.2 TH/MM3 (0-0.4); EOSINOPHIL % 1.7 % (0.0-4.0); HEMATOCRIT 35.9 % (39.0-51.0); HEMO FLAGS DIFF FINAL; LYMPH % 11.7 % (9.0-44.0); MEAN CELL VOLUME 84.1 FL (80.0-100.0); MEAN CORPUSCULAR HEMOGLOBIN 29.1 PG (27.0-34.0); MEAN CORPUSCULAR HGB CONC 34.6 % (32.0-36.0); MONO % 12.1 % (0.0-8.0); NEUT % 73.4 % (16.0-70.0); PLATELET COUNT 200 TH/MM3 (150-450); RED BLOOD COUNT 4.27 MIL/MM3 (4.50-5.90); RED CELL DISTRIBUTION WIDTH 15.6 % (11.6-17.2); WHITE BLOOD COUNT 8.9 TH/MM3 (4.0-11.0)
== END 2017-09-03 15:20 | disposition home or self-care (01) ==
LOC: NEPE 09:47 → NEDA 12:16 → INTOOBSV 12:16 → N04A 15:30
PROVIDERS: ADMIT Internal Medicine; ATTEND Internal Medicine
DX: I25.110 Atherosclerotic heart disease of native coronary artery with unstable angina pectoris (principal); I21.4 Non-ST elevation (NSTEMI) myocardial infarction; I10 Essential (primary) hypertension; E78.00 Pure hypercholesterolemia, unspecified; I25.2 Old myocardial infarction; E03.9 Hypothyroidism, unspecified; K21.9 Gastro-esophageal reflux disease without esophagitis; M19.90 Unspecified osteoarthritis, unspecified site; Z79.899 Other long term (current) drug therapy; Z79.82 Long term (current) use of aspirin; Z79.02 Long term (current) use of antithrombotics/antiplatelets; Z86.73 Personal history of transient ischemic attack (TIA), and cerebral infarction without residual deficits; Z92.21 Personal history of antineoplastic chemotherapy; Z85.828 Personal history of other malignant neoplasm of skin; Z95.1 Presence of aortocoronary bypass graft; Z96.651 Presence of right artificial knee joint; Z87.891 Personal history of nicotine dependence
CPT/HCPCS: 71010; 80048; 80061; 82550; 82552; 83036; 83735; 84439; 84443; 84450; 84460; 84484; 85025; 85610; 85730; 93005; 93459; 96365; 96366; 96375; 99152; 99153; C1769; C1893; G0378; J1644; J2250; J3010; J7030; Q9967